=== PATIENT | male | born 1975 | race Caucasian/White ===

== ENCOUNTER 2021-04-28 19:10 | Emergency (ER) | payer OTHER ==
[~2021-04-28] VITALS: Ht 185.4 cm; Wt 108.9 kg
[2021-04-28 22:52] VITALS: BP 143/99
[2021-04-28] MEDS: KETOROLAC 30MG VIAL (30MG/ML) IV ONE (23:00)
[2021-04-28 23:08] LABS: BASOPHILS % (AUTO) 0.4 % (0.0-5.0); EOSINOPHILS % (AUTO) 0.3 % (0.0-8.0); HEMATOCRIT 47.5 % (42-54); LYMPHOCYTES % (AUTO) 23.3 % (21.0-51.0); MEAN CORPUSCULAR HEMOGLOBIN 31.9 pg (27.0-33.0); MEAN CORPUSCULAR HGB CONC 35.2 g/dL (32.0-36.0); MEAN CORPUSCULAR VOLUME 90.8 fL (79-99); MONOCYTES % (AUTO) 5.2 % (3.0-13.0); NEUTROPHILS % (AUTO) 70.5 % (40.0-77.0); PLATELET COUNT (AUTO) 235 K/uL (130-400); RED BLOOD CELL COUNT(AUTO) 5.23 MIL/uL (4.50-6.20); RED CELL DISTRIBUTION WIDTH 11.7 % (11.0-15.5); WHITE BLOOD COUNT (AUTO) 7.8 K/uL (4.8-10.8)
[2021-04-28] MEDS: DIAZEPAM 5 MG/ML 2 ML SYG IM ONE (23:15)
[2021-04-28 23:33] LABS: CARBON DIOXIDE 28 mmol/L (21-32); CHLORIDE 109 mmol/L (101-111); GLOMERULAR FILTR. RATE CALC 85 mL/min (>60); GLUCOSE,RANDOM 99 mg/dL (70-105); POTASSIUM 4.7 mmol/L (3.5-5.1); SODIUM SERUM 145 mmol/L (136-145); UREA NITROGEN, BLOOD 14 mg/dL (7-18)
[2021-04-28 23:37] LABS: ALANINE AMINOTRANSFERASE 37 U/L (12-78); ALBUMIN 3.9 g/dL (3.5-5.0); ASPARTATE AMINOTRANSFERASE 14 U/L (10-37); BILIRUBIN,TOTAL 0.7 mg/dL (0.2-1.0)
[2021-04-28 23:39] LABS: CRP QUANTITATIVE < 2.00 mg/L (0.00-9.0)
[2021-04-29 00:48] LABS: APPEARANCE,URINE Clear (CLEAR); BILIRUBIN,URINE Negative (NEGATIVE); COLOR,URINE Yellow (YELLOW); GLUCOSE, URINE (UA) Negative (NEGATIVE); KETONES,URINE Negative (NEGATIVE); LEUKOCYTE ESTERASE ,URINE Negative (NEGATIVE); NITRATE,URINE Negative (NEGATIVE); OCCULT BLOOD,URINE Negative (NEGATIVE); PROTEIN,URINE Negative (NEGATIVE)
[2021-04-29 01:00] VITALS: BP 132/74
[2021-04-29] MEDS ORDERED: IBUP-2077 PO (01:01)
[2021-04-29] MEDS ORDERED: CYCL10TA7 PO (01:01)
== END 2021-04-29 03:04 | disposition home or self-care (01) ==
LOC: EDH 19:10
DX: M54.5 Low back pain (principal); Z98.1 Arthrodesis status
CPT/HCPCS: 36415; 72131; 80053; 81003; 85025; 86140; 96372; 96374; 99285; J1885; J3360